=== PATIENT | female | born 1965 | race Caucasian/White ===

== ENCOUNTER 2017-06-01 07:57 | Emergency (ER) | payer OTHER ==
[~2017-06-01] VITALS: Ht 162.6 cm; Wt 69.8 kg
[2017-06-01] MEDS ORDERED: BENADRYL25 MG PO (08:12)
[2017-06-01] MEDS ORDERED: HYDROCORT-PRAMO30 G1 PR (08:13)
[2017-06-01] MEDS ORDERED: PREDNISONE20 MG PO (08:37)
== END 2017-06-01 09:00 | disposition home or self-care (01) ==
LOC: ED 07:57
DX: T78.40XA Allergy, unspecified, initial encounter (principal); R21 Rash and other nonspecific skin eruption; Z91.048 Other nonmedicinal substance allergy status; Z79.899 Other long term (current) drug therapy
CPT/HCPCS: 99283